=== PATIENT | female | born 1955 | race Two or more races ===

== ENCOUNTER 2017-06-15 18:43 | Emergency (ER) | payer OTHER ==
[~2017-06-15 18:43] MED LIST: ASPI81CH43
[2017-06-15 18:49] VITALS: BP 165/89
== END 2017-06-15 21:43 | disposition home or self-care (01) ==
LOC: ER 18:47
DX: H11.32 Conjunctival hemorrhage, left eye (principal); E78.5 Hyperlipidemia, unspecified; Z79.82 Long term (current) use of aspirin

== ENCOUNTER 2017-08-24 14:27 | Emergency (ER) | payer OTHER ==
[~2017-08-24] VITALS: Ht 149.9 cm; Wt 68.0 kg
[2017-08-24 14:48] VITALS: BP 156/82
== END 2017-08-24 15:50 | disposition home or self-care (01) ==
LOC: ER 14:27
DX: J20.9 Acute bronchitis, unspecified (principal)

== ENCOUNTER 2018-07-28 09:31 | Emergency (ER) | payer OTHER ==
[~2018-07-28] VITALS: Ht 154.9 cm; Wt 68.0 kg
[2018-07-28 10:01] VITALS: BP 155/82
== END 2018-07-28 11:43 | disposition home or self-care (01) ==
LOC: ER 09:31
DX: N64.4 Mastodynia (principal); R91.1 Solitary pulmonary nodule; E78.5 Hyperlipidemia, unspecified; Z90.710 Acquired absence of both cervix and uterus
CPT/HCPCS: 71250